=== PATIENT | female | born 1985 | race Caucasian/White ===

== ENCOUNTER 2018-01-11 20:02 | Emergency (ER) | payer OTHER ==
[2018-01-11 21:37] VITALS: BP 124/55
--- NOTE | 2018-01-11 21:55 | UC ---
Hand/Wrist HPI - HPI Summary HPI Summary: [place]. Pt struck left hand into wall of slide + immmediate pain and swelling RHD + analgesia ice contineus with pain and swelling with movement No paresthesia weakness pt's medications reviewed this visit - History Of Current Complaint Chief Complaint: UCUpperExtremity Stated Complaint: JAMMED FINGER Time Seen by Provider: 01/11/18 21:54 Hx Obtained From: Patient Hx Last Menstrual Period: 01/02/18 ?: No Onset/Duration: Sudden Onset, Lasting Days Severity Initially: Moderate Severity Currently: Moderate Pain Intensity: 4 Pain Scale Used: 0-10 Numeric Character Of Pain: Stiffness Aggravating Factor(s): Movement, Extension Alleviating Factor(s): Nothing Associated Signs And Symptoms: Positive: Swelling, Bruising - Allergies/Home Medications Allergies/Adverse Reactions: Allergies Allergy/AdvReac Type Severity Reaction Status Date / Time No Known Allergies Allergy Verified 02/05/16 08:21 Home Medications: Home Medications NK [No Home Medications Reported] 01/11/18 [History Confirmed 01/11/18] PMH/Surg Hx/FS Hx/Imm Hx Previously Healthy: Yes - Surgical History Surgical History: None - Family History Known Family History: Positive: None - Social History Occupation: Employed Full-time Lives: With Family Alcohol Use: Occasionally Substance Use Type: None Smoking Status (MU): Never Smoked Tobacco - Immunization History Most Recent Influenza Vaccination: yes Review of Systems Skin: Bruising, Other - swelling left hand Motor: Other - left hand All Other Systems Reviewed And Are Negative: Yes Physical Exam Triage Information Reviewed: Yes Appearance: Well-Appearing, Well-Nourished Vital Signs: Initial Vital Signs Temp 97.6 F 01/11/18 21:28 Pulse 68 01/11/18 21:28 Resp 16 01/11/18 21:28 BP 124/55 01/11/18 21:28 Pulse Ox 98 01/11/18 21:28 Vital Signs Reviewed: Yes Eyes: Positive: Conjunctiva Clear ENT: Positive: Hearing grossly normal Neck: Positive: Supple Respiratory: Positive: No respiratory distress, No accessory muscle use Cardiovascular: Positive: Other: - 2+ radial, ulnar CBT <2 sec all fingers Musculoskeletal: Positive: Other: - + flex/ext elbow + pronate/supinate + flex/ ext wrist +TTP dorsum left hand medial aspect no pain phalanges Neurological: Positive: Other: - + gross sensation throughout hand Psychological Exam: Normal Skin Exam: Normal Procedures - Splinting Hand-Made Type: orthoglass Splint: volar Pre-Proc Neuro Vasc Exam: normal Post-Proc Neuro Vasc Exam: normal Diagnostics - Radiology No standard instances Xray Interpretation: Positive (See Comments) - Order Information: HAND - LEFT MINIMUM 3 VIEWS Accession Number: [id number] CPT: 15817 Indication: Left hand injury. 4 views of left hand with special attention paid to the fourth digit demonstrates oblique fracture through the midshaft of the fourth metacarpal. No significant displacement is noted. No other fractures are noted. IMPRESSION: Oblique fracture midshaft fourth metacarpal. No significant displacement is noted. < Electronically signed by Poonam Manzanares MD in [facility]> 01/12/18 0735 Radiology Interpretation Completed By: ED Physician, Radiologist Hand/Wrist Course/Dx - Course Course Of Treatment: Pt struck left hand on Wednesday. + edema, ecchymosis dosrum left hand with discomfort along MC. xray + fx. splint. ice. sling. analgesia. 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 - Differential Dx/Diagnosis Provider Diagnoses: 4th mc oblique nondisplaced fx Discharge - Discharge Plan Condition: Stable Disposition: HOME Patient Education Materials: Hand Fracture (ED) Forms: *Work Release Referrals: Barry Rodriguez MD [Medical Doctor] - Juan A Lacy MD [Medical Doctor] - Isreal Griffin MD [Primary Care Provider] - Additional Instructions: -w ear splint until you are evaluated by the food specialist - wear sling for comfort and support - alternate ibuprofen (Advil, Motrin) and tylenol every 3 hours for pain - apply ice (wrapped in a towel)20 minutes at a time, 2-3 times a day - Contact the orthopedic office (Dr. Rodriguez is agronomy teacher [facility], Dr. lacy is in the orthopedic office where your family previously had care) - contact the orthopedic office or return with questions or concerns
--- NOTE | 2018-01-12 07:38 | RAD ---
Indication: Left hand injury. 4 views of left hand with special attention paid to the fourth digit demonstrates oblique fracture through the midshaft of the fourth metacarpal. No significant displacement is noted. No other fractures are noted. IMPRESSION: Oblique fracture midshaft fourth metacarpal. No significant displacement is noted.
== END 2018-01-11 22:41 | disposition home or self-care (01) ==
LOC: UCCORT 20:02
DX: S62.355A Nondisplaced fracture of shaft of fourth metacarpal bone, left hand, initial encounter for closed fracture (principal); W22.8XXA Striking against or struck by other objects, initial encounter; Y93.18 Activity, surfing, windsurfing and boogie boarding; Y92.838 Other recreation area as the place of occurrence of the external cause
CPT/HCPCS: 99211; G0463

== ENCOUNTER 2018-10-27 08:38 | Emergency (ER) | payer OTHER ==
--- NOTE | 2018-10-27 10:34 | UC ---
Throat Pain/Nasal Shant HPI - HPI Summary HPI Summary: The patient is a 33-year-old female with a three-day history of nasal congestion sore throat bilateral ear pain. She denies any fever. Last night she developed the worst headache of her life. She states that her headache was located at the vertex. There was knifelike. She does have a history of migraines but this was completely atypical for her headaches. Her headache is worse if she bends over. Rest night her headache was 8 out of 10. Currently it is a 3 or 4 out of 10. She denies any neck pain. - History of Current Complaint Chief Complaint: UCRespiratory Stated Complaint: SORE THROAT, HEADACHE Time Seen by Provider: 10/27/18 09:40 Hx Obtained From: Patient Hx Last Menstrual Period: 2 weeks Onset/Duration: Gradual Onset Severity: Mild Pain Intensity: 3 Pain Scale Used: 0-10 Numeric Associated Signs & Symptoms: Positive: Sinus Discomfort, Nasal Discharge - Epiglottits Risk Factors Epiglottis Risk Factors: Negative - Allergies/Home Medications Allergies/Adverse Reactions: Allergies Allergy/AdvReac Type Severity Reaction Status Date / Time No Known Allergies Allergy Verified 10/27/18 09:01 Home Medications: Home Medications Dm/Acetaminophen/Doxylamine [Vicks Nyquil Liquicaps] 2 each PO QPM PRN 10/27/18 [History Confirmed 10/27/18] Essential Oils 1 dose INH SEE INSTRUCTIONS PRN 10/27/18 [History Confirmed 10/27] Ibuprofen TAB* [Motrin TAB* 600 MG] 600 mg PO Q4H PRN 10/27/18 [History Confirmed 10/27/18] Lavender Oil [Lavender Fragrance Oil] 1 dose .SEE ORDER ONCE PRN 10/27/18 [ History Confirmed 10/27/18] Oregano Oil [Oil of Oregano] 1,500 mg TOPICAL ONCE PRN 10/27/18 [History Confirmed 10/27/18] PMH/Surg Hx/FS Hx/Imm Hx Previously Healthy: Yes Neurological History: Migraine - Surgical History Surgical History: None - Family History Known Family History: Positive: Hypertension - Social History Alcohol Use: Occasionally Substance Use Type: None Smoking Status (MU): Never Smoked Tobacco - Immunization History Most Recent Influenza Vaccination: yes Review of Systems All Other Systems Reviewed And Are Negative: Yes Constitutional: Positive: Negative Skin: Positive: Negative Eyes: Positive: Negative ENT: Positive: Sore Throat, Ear Ache, Nasal Discharge, Sinus Congestion, Sinus Pain/Tenderness Respiratory: Positive: Cough Cardiovascular: Positive: Negative Gastrointestinal: Positive: Negative Genitourinary: Positive: Negative Motor: Positive: Negative Neurovascular: Positive: Negative Musculoskeletal: Positive: Negative Neurological: Positive: Headache Psychological: Positive: Negative Physical Exam Triage Information Reviewed: Yes Appearance: Well-Appearing, No Pain Distress, Well-Nourished Vital Signs: Initial Vital Signs Temp 98.5 F 10/27/18 08:51 Pulse 82 10/27/18 08:51 Resp 18 10/27/18 08:51 BP 113/61 10/27/18 08:51 Pulse Ox 100 10/27/18 08:51 Vital Signs Reviewed: Yes Eyes: Positive: Conjunctiva Clear, Other: - eomi/perrl. fundi-sharp discs ENT: Positive: Hearing grossly normal, Nasal congestion, Nasal drainage, TMs normal, Sinus tenderness, Uvula midline. Negative: Tonsillar swelling, Tonsillar exudate, Trismus, Muffled voice, Hoarse voice, Dental tenderness Neck: Positive: Supple, Nontender, No Lymphadenopathy Respiratory: Positive: Lungs clear, Normal breath sounds, No respiratory distress, No accessory muscle use Cardiovascular: Positive: RRR, No Murmur, Pulses Normal Musculoskeletal: Positive: ROM Intact, No Edema Neurological: Positive: Alert, Other: - cn2-12 intact, normal gait, 5/5 strenght , DTRs symmetrical Psychological Exam: Normal Skin Exam: Normal Diagnostics - Radiology No standard instances Radiology Interpretation Completed By: Radiologist Summary of Radiographic Findings: IMPRESSION: 1. NO EVIDENCE FOR ACUTE INTRACRANIAL ABNORMALITY. 2. PROBABLE CHIARI I MALFORMATION. RECOMMEND A FOLLOW -UP OUTPATIENT MRI OF THE BRAIN. WITHOUT CONTRAST Throat Pain/Nasal Course/Dx - Differential Dx/Diagnosis Provider Diagnosis: Chiari malformation type I, Viral URI Discharge - Sign-Out/Discharge Documenting (check all that apply): Patient Departure All imaging exams completed and their final reports reviewed: Yes - Discharge Plan Condition: Stable Disposition: HOME Patient Education Materials: Acute Headache (ED) Referrals: Isreal Griffin MD [Primary Care Provider] - As Soon As Possible Additional Instructions: Chiari malformation Type I Type 1 happens when the lower part of the cerebellum (called the cerebellar tonsils) extends into the foramen magnum. Normally, only the spinal cord passes through this opening. Type 1which may not cause symptomsis the most common form of CM. It is usually first noticed in adolescence or adulthood, often by accident during an examination for another condition. Adolescents and adults who have CM but no symptoms initially may develop signs of the disorder later in life Here is your CT report IMPRESSION: 1. NO EVIDENCE FOR ACUTE INTRACRANIAL ABNORMALITY. 2. PROBABLE CHIARI I MALFORMATION. RECOMMEND A FOLLOW-UP OUTPATIENT MRI OF THE BRAIN WITHOUT CONTRAST Please contact your provider and see if they can order you an outpatient MRI of the brain without contrast TO ER FOR NEW OR WORSENING SYMPTOMS tylenol or advil for pain if headache worse when laying down try a wedge pillow/sleeping with head of bed elevated avoid activities which could lead to neck injuries...skiing...skating...roller coasters...diving etc - Billing Disposition and Condition Condition: STABLE Disposition: Home
[2018-10-27 11:34] VITALS: BP 118/72
== END 2018-10-27 11:34 | disposition home or self-care (01) ==
LOC: UCCORT 08:38
DX: G93.5 Compression of brain (principal); J06.9 Acute upper respiratory infection, unspecified
CPT/HCPCS: 70450; 99212; G0463

== ENCOUNTER 2018-12-23 09:47 | Emergency (ER) | payer OTHER ==
[2018-12-23 10:24] VITALS: BP 122/65
--- NOTE | 2018-12-23 12:06 | UC ---
Lower Extremity/Ankle HPI - HPI Summary HPI Summary: 33-year-old female presents with left ankle pain after a full length mirror accidentally fell and struck her on the lateral malleolus. Complains of pain, some bruising, and swelling over the lateral malleolus. Pain worsens with movement. She has been unable to bear weight since the injury. Denies numbness or tingling. - History of Current Complaint Chief Complaint: UCLowerExtremity Stated Complaint: LEFT ANKLE INJURY Time Seen by Provider: 12/23/18 11:53 Hx Obtained From: Patient Hx Last Menstrual Period: 12/12/18 Pain Intensity: 6 - Allergies/Home Medications Allergies/Adverse Reactions: Allergies Allergy/AdvReac Type Severity Reaction Status Date / Time No Known Allergies Allergy Verified 12/23/18 10:21 PMH/Surg Hx/FS Hx/Imm Hx Previously Healthy: Yes - Denies significant PMH - Surgical History Surgical History: None - Family History Known Family History: Positive: Hypertension - Social History Alcohol Use: Occasionally Substance Use Type: None Smoking Status (MU): Never Smoked Tobacco - Immunization History Most Recent Influenza Vaccination: yes Review of Systems All Other Systems Reviewed And Are Negative: Yes Constitutional: Positive: Negative Skin: Positive: Bruising Respiratory: Positive: Negative Cardiovascular: Positive: Negative Gastrointestinal: Positive: Negative Genitourinary: Positive: Negative Motor: Negative: Weakness Neurovascular: Negative: Decreased Sensation Musculoskeletal: Positive: Other: - See HPI Neurological: Positive: Negative Is Patient Immunocompromised?: No Physical Exam - Summary Physical Exam Summary: GENERAL APPEARANCE: Well developed, well nourished, alert and cooperative, and appears to be in no acute distress. CARDIAC: Normal S1 and S2. No S3, S4 or murmurs. Rhythm is regular. There is no peripheral edema, cyanosis or pallor. Extremities are warm and well perfused. Capillary refill is less than 2 seconds. Peripheral pulses intact. LUNGS: Clear to auscultation without rales, rhonchi, wheezing or diminished breath sounds. ABDOMEN: Positive bowel sounds. Soft, nondistended, nontender. No guarding or rebound. No masses or hepatosplenomegally. MUSKULOSKELETAL: Tenderness over the left lateral malleolus with significant eccymosis and edema. ROM mildly diminished due to pain. No laxity noted. Circulation and sensation intact distally. SKIN: Skin normal color, texture and turgor. Triage Information Reviewed: Yes Vital Signs: Initial Vital Signs Temp 98.7 F 12/23/18 10:19 Pulse 87 12/23/18 10:19 Resp 16 12/23/18 10:19 BP 122/65 12/23/18 10:19 Pulse Ox 100 12/23/18 10:19 Vital Signs Reviewed: Yes Diagnostics - Radiology No standard instances Radiology Interpretation Completed By: Radiologist Summary of Radiographic Findings: Patient Name: LIBIA CHERRY Medical Record#: [id number]. Ordering Physician: Vel López MD Acct.#: [id number]. : 1985 Age: 33 Sex: F Location: [facility] [place]. Exam Date: 110 ADM Status: REG ER. Order Information: ANKLE LEFT 3+VWS. Accession Number: [id number]. CPT: 67699. INDICATION: Crush injury lateral left ankle. TECHNIQUE: 3 views of the left ankle were obtained. FINDINGS: There is focal prominent soft tissue swelling present along the lateral aspect of the ankle. There is deformity of the lateral aspect of the distal fibula suggestive of an impaction fracture. No other fractures are seen. Joint spaces appear maintained. IMPRESSION: LATERAL SOFT TISSUE SWELLING AND DEFORMITY OF THE DISTAL FIBULA SUGGESTIVE OF AN IMPACTION FRACTURE OF THE DISTAL LATERAL ASPECT OF THE FIBULA. Lower Extremity Course/Dx - Course Course Of Treatment: 33-year-old female presents with left ankle pain after a full length mirror accidentally fell and struck her on the lateral malleolus. Complains of pain, some bruising, and swelling over the lateral malleolus. Pain worsens with movement. She has been unable to bear weight since the injury. Denies numbness or tingling. Afebrile. Vital signs stable. Exam reveals an adult female in no acute distress with significant swelling, ecchymosis, and tenderness over the left lateral malleolus. No gross deformity. Circulation and sensation intact distally. X-ray showed IMPACTION FRACTURE OF THE DISTAL LATERAL ASPECT OF THE FIBULA. Patient was placed in a cam boot and given crutches for partial weightbearing. She was prescribed naproxen 500 mg every 12 hours for pain management and recommended RICE. She is to follow-up with orthopedic surgery within 5 days. Anticipatory guidance warning symptoms were reviewed with the patient. Verbalizes understanding and agrees with plan of care. - Differential Dx/Diagnosis Differential Diagnosis/HQI/PQRI: Contusion, Dislocation, Fracture (Closed), Sprain, Strain Provider Diagnosis: Nondisplaced fracture of distal end of left tibia Discharge - Sign-Out/Discharge Documenting (check all that apply): Patient Departure All imaging exams completed and their final reports reviewed: Yes - Discharge Plan Condition: Stable Disposition: HOME Prescriptions: Naproxen [Naproxen 500 mg tab] 500 mg PO Q12HR #30 tablet Patient Education Materials: Ankle Fracture (ED), Crutch Instructions (ED), Splint Care (ED) Forms: *Work Release Referrals: Isreal Griffin MD [Primary Care Provider] - Hugo Bocanegra MD [Medical Doctor] - 5 Days (Call for appointment.) Additional Instructions: Your x-ray performed in the clinic today showed a fracture of the distal tibia. Wear the CAM boot provided to you for support and to protect injury. May remove at night and to shower. Rest the ankle as much as possible. You may use the crutches provided for partial weight bearing. Apply ice to the ankle for 15-20 minutes at least 4 times a day to help with pain and swelling. Keep the foot elevated while sitting to help reduce swelling. Take naproxen 500 mg 1 tab every 12 hours with food for next 5-7 days then may take as needed. Follow up with Dr. Bocanegra, orthopedic surgery, within 5 days for continued care. Call for an appointment. Seek immediate medical attention in the emergency room if you have severe pain that is not managed with pain medication, the foot or toes become pale or blue in color, he developed numbness or tingling in the foot or toes, or have any worsening of symptoms. - Billing Disposition and Condition Condition: STABLE Disposition: Home
== END 2018-12-23 12:39 | disposition home or self-care (01) ==
LOC: UCCORT 09:47
DX: S90.02XA Contusion of left ankle, initial encounter (principal); W20.8XXA Other cause of strike by thrown, projected or falling object, initial encounter; Y92.9 Unspecified place or not applicable
CPT/HCPCS: 99213; G0463